=== PATIENT | female | born 1965 | race Caucasian/White ===

== ENCOUNTER 2024-07-01 06:00 | Outpatient (RCR) | payer BC, SELFPAY | END 2024-07-12 18:00 | disposition home or self-care (01) | LOC: MPT 06:00 | PROVIDERS: Visit Provider Nurse Practitioner | DX: R42 Dizziness and giddiness (principal) | CPT/HCPCS: 95992; 97161 ==

== ENCOUNTER → 2025-04-01 10:24 | Outpatient (BNVA) | payer BC, SELFPAY | PROVIDERS: PCP Nurse Practitioner; Visit Provider Nurse Practitioner | DX: Z00.00 Encounter for general adult medical examination without abnormal findings (principal) | CPT/HCPCS: 80053; 80061; 85025 ==

== ENCOUNTER 2025-04-09 14:13 | Outpatient (CLI) | payer BC, SELFPAY ==
--- NOTE | 2025-04-09 15:00 | XR_ITS ---
WS: [id number] SCREENING DEXA SCAN [facility] 3D CLINICAL INFORMATION: Z13.820 - Encounter for screening for osteoporosis COMPARISON: None. FINDINGS: The L1-L4 bone mineral density measures 0.984 g/cm2. This corresponds to a T score score of -1.6 and Z score of -1.0. Left femoral neck bone mineral density measures 0.866 g/cm2. This corresponds to a T score of -1.1 and Z score of -0.6. Right femoral neck bone mineral density measures 0.887 g/cm2. This corresponds to a T score -1.0of and Z score of -0.4. Mean femoral neck bone mineral density measures 0.876 g/cm2. This corresponds to a T score of -1.0 and Z score of -0.5. XR/XR DEXA axial skeleton* [id number] IMPRESSION: Osteopenia lumbar spine. Osteopenia femoral necks. Patient's FRAX calculated 10 year probability for major osteoporotic fracture i s 8.2% and osteoporotic hip fracture is 0.7%.
== END 2025-04-09 14:14 | disposition home or self-care (01) ==
LOC: RAD 14:14
PROVIDERS: PCP Nurse Practitioner; Visit Provider Nurse Practitioner
DX: Z00.00 Encounter for general adult medical examination without abnormal findings (principal); Z13.820 Encounter for screening for osteoporosis; M85.89 Other specified disorders of bone density and structure, multiple sites
CPT/HCPCS: 77080

== ENCOUNTER → 2025-05-14 10:04 | Outpatient (BNVA) | payer BC, SELFPAY | PROVIDERS: PCP Nurse Practitioner; Visit Provider Nurse Practitioner | DX: R94.4 Abnormal results of kidney function studies (principal) | CPT/HCPCS: 80053 ==

== ENCOUNTER 2025-06-12 05:00 | Outpatient (RCR) | payer BC, SELFPAY | END 2025-07-12 23:59 | disposition home or self-care (01) | LOC: MPT 05:00 | PROVIDERS: PCP Nurse Practitioner; Visit Provider Podiatrist Foot & Ankle Surgery | DX: M79.671 Pain in right foot (principal) | CPT/HCPCS: 97110; 97161 ==

== ENCOUNTER → 2025-06-23 10:56 | Outpatient (BNVA) | payer BC, SELFPAY | PROVIDERS: PCP Nurse Practitioner; Visit Provider Nurse Practitioner | DX: R06.09 Other forms of dyspnea (principal) | CPT/HCPCS: 80053; 80061; 83735; 84443; 85025 ==

== ENCOUNTER → 2025-06-30 08:35 | Outpatient (BNVA) | payer BC, SELFPAY | PROVIDERS: PCP Nurse Practitioner; Visit Provider Podiatrist Foot & Ankle Surgery | DX: M79.671 Pain in right foot (principal); M72.2 Plantar fascial fibromatosis | CPT/HCPCS: 73630 ==

== ENCOUNTER 2025-07-13 05:00 | Outpatient (RCR) | payer BC, SELFPAY | END 2025-08-11 23:59 | disposition home or self-care (01) | LOC: MPT 05:00 | PROVIDERS: PCP Nurse Practitioner; Visit Provider Podiatrist Foot & Ankle Surgery | DX: M72.2 Plantar fascial fibromatosis (principal) | CPT/HCPCS: 97110; 97140 ==

== ENCOUNTER → 2025-08-06 12:18 | Outpatient (BNVA) | payer BC, SELFPAY | PROVIDERS: PCP Nurse Practitioner; Referring Provider Nurse Practitioner; Visit Provider Internal Medicine Cardiovascular Disease | DX: Z82.49 Family history of ischemic heart disease and other diseases of the circulatory system (principal) | CPT/HCPCS: 93005 ==

== ENCOUNTER 2025-08-18 08:30 | Outpatient (CLI) | payer BC, SELFPAY ==
[2025-08-18 09:23] VITALS: BMI 27.0
--- NOTE | 2025-08-18 09:30 | ECG_ITS ---
[facility] Date: 2025-08-18 Pat Name: Berta Dawson Department: Room: Gender: Female [employer]: : 1965 Requested By: Nisa Constantino Order Number: [id number] Sea MD: José Luis Pan M.D. Interpretive Statements EXERCISE STRESS TEST EXERCISE DATA: The patient was exercised by Harvey protocol. Baseline heart rate was 69 beats per minute. Baseline blood pressure was 116/87 millimeters of mercury. Maximal predicted heart rate was 158 beats per minute. Maximum heart rate achieved was 156, which was 98% of the maximum predicted heart rate. Maximum blood pressure was 156/56 millimeters of mercury. Total exercise time was 5 minutes and 31 seconds. Maximum METs achieved was 7. The reason for ending the test was maximal effort achieved. The patient complained of shortness of breath during the stress test, which then resolved at the end of the test. ELECTROCARDIOGRAM: BASELINE: Showed sinus rhythm, normal axis, no significant ST-T changes at the baseline noted. [] EXERCISE: At the peak exercise level, [] No significant ST-T changes suggestive of ischemia noted. [] RECOVERY: During the recovery period, heart rate dropped appropriately. No significant ST-T changes in the recovery suggestive of ischemia noted. [] CONCLUSION: 1. Exercise capacity is fair 2. Heart rate response was appropriate 3. Blood pressure response was appropriate. 4. Symptoms not suggestive of ischemia. 5. Stress test does not show ischemia Electronically Signed On 08-30-2025 10:22:35 CDT by José Luis Pan M.D. [email or web address]
--- NOTE | 2025-08-18 09:30 | NMCV_ITS ---
NM minoo perf SPECT r/s* [id number] Berta Dawson Age: 60 Gender: F : 1965 Exam Date: 08/18/2025 10:17 Ordering Phys: Nisa Constantino MD ([email or web address]) Technologist: ZAIRA Corado Exam [facility]: [facility] Indications: cp STRESS TEST Please see separate stress test report in [facility] for full findings IMAGE PROTOCOL Rest/Stress 1 Exercise Day Radiopharmaceutical Dose (mCi) Administration Site Administered by Rest: Tc-99m 11 IV ZAIRA Corado Sestamibi Stress:Tc-99m 32.7 IV Claire Redd [employer] Sestamibi Rest: 18-Aug-2025 60 Discovery 630 Stress: 18-Aug-2025 15 Discovery 630 Radiopharmaceutical was injected at 97% maximum heart rate. Supine position only as patient was unable to lay prone. SPECT RESULTS Technical Quality: Good Raw Data Analysis: Normal Image Corrections: No attenuation or motion correction applied Summed Stress Score: 0 Summed Rest Score: 0 Summed Difference Score: 0 PERFUSION FINDINGS Medium sized area of mild to moderate reversibility noted in basal to mid anterior wall, in the absence of wall motion abnormality could be an artifact however cannot rule out ischemia, clinical correlation advised. FUNCTIONAL RESULTS (calculated via Gated SPECT) Stress Image LV EF (%): 67 Stress EDV (mL):64 TID: 0.79 Stress ESV (mL):21 FUNCTIONAL FINDINGS: There is normal left ventricular systolic function. IMPRESSIONS Medium sized area of mild to moderate reversibility noted in basal to mid anterior wall, in the absence of wall motion abnormality could be an artifact however cannot rule out ischemia, clinical correlation advised. Nisa Constantino MD (Electronically Signed) Final Date: 18 August 2025 12:06 S
[2025-08-18 10:59] VITALS: BP 132/65; PULSE 86
== END 2025-08-18 08:31 | disposition home or self-care (01) ==
LOC: CDL 08:32
PROVIDERS: PCP Nurse Practitioner; Visit Provider Internal Medicine Cardiovascular Disease
DX: R07.9 Chest pain, unspecified (principal); R06.02 Shortness of breath; R93.1 Abnormal findings on diagnostic imaging of heart and coronary circulation
CPT/HCPCS: 36415; 78452; 93017; A9500

== ENCOUNTER 2025-09-18 15:35 | Outpatient (CLI) | payer BC, SELFPAY ==
--- NOTE | 2025-09-18 16:00 | USR_ITS ---
PROCEDURE INFORMATION: Exam: US Soft Tissue Head and Neck, Thyroid Exam date and time: 09/18/2025 3:41 PM Age: 60 years old Clinical indication: Other: Enlarged thyroid; Goiter, small hetero thyroid tissue; Additional info: Enlarged thyroid, please include ti-rads TECHNIQUE: Imaging protocol: Real-time ultrasound scan of the neck with image documentation. Exam focused on the thyroid. COMPARISON: No relevant prior studies available. FINDINGS: Right thyroid lobe: No nodules. Appears hyperemic on Doppler imaging. Left thyroid lobe: No nodules. Appears hyperemic on Doppler imaging. Isthmus: No nodules. US/US thyroid [id number] IMPRESSION: 1. Hyperemic thyroid gland which could indicate nonspecific thyroiditis. Correlate clinically. 2. No nodules. No masses. 3. No incidental lymphadenopathy.
[2025-09-18 16:41] LABS: Free T4 Free Thyroxine 1.40 ng/dL (0.82-1.77); Thyroid Stimulating Hormone 0.45 uIU/mL (0.27-4.20)
== END 2025-09-18 15:36 | disposition home or self-care (01) ==
PROVIDERS: PCP Nurse Practitioner; Visit Provider Internal Medicine
DX: E04.1 Nontoxic single thyroid nodule (principal); E07.89 Other specified disorders of thyroid
CPT/HCPCS: 36415; 76536; 84439; 84443; 84480